=== PATIENT | male | born 1980 | race Caucasian/White ===

== ENCOUNTER 2017-04-17 10:17 | Emergency (ER) | payer MEDICARE, MEDICAID | END 2017-04-17 11:36 | disposition home or self-care (01) | LOC: D.ER 10:17 | DX: J01.90 Acute sinusitis, unspecified (principal); J31.0 Chronic rhinitis; B20 Human immunodeficiency virus [HIV] disease; F17.200 Nicotine dependence, unspecified, uncomplicated ==

== ENCOUNTER 2017-06-23 18:29 | Emergency (ER) | payer MEDICARE, MEDICAID | END 2017-06-23 20:24 | disposition home or self-care (01) | LOC: D.ER 18:29 | DX: K08.89 Other specified disorders of teeth and supporting structures (principal); B20 Human immunodeficiency virus [HIV] disease ==

== ENCOUNTER 2018-02-11 09:48 | Emergency (ER) | payer MEDICARE, MEDICAID ==
[~2018-02-11] VITALS: Ht 172.7 cm; Wt 95.9 kg
[2018-02-11 10:11] VITALS: Ht 172.7 cm; Wt 95.9 kg
[2018-02-11] MEDS ORDERED: ISENTRESS400 MG PO (10:16)
[2018-02-11] MEDS ORDERED: VALIUM10 MG PO (10:16)
[2018-02-11] MEDS ORDERED: DESCOVY PO (10:17)
[2018-02-11 10:39] LABS: APPEARANCE CLEAR (CLEAR); BILIRUBIN NEGATIVE (NEGATIVE); COLOR STRAW (YELLOW); GLUCOSE NEGATIVE (NEGATIVE); KETONE SMALL mg/dL (NEGATIVE); NITRITE NEGATIVE (NEGATIVE); PROTEIN NEGATIVE (NEGATIVE); UROBILINOGEN NORMAL (NORMAL)
[2018-02-11 10:45] LABS: BASOPHILS 0.3 % (0-2); EOSINOPHILS 2.2 % (0-7); HEMOGLOBIN 18.4 g/dL (13.5-17.5); IMMATURE GRANULOCYTES 0.4 % (0-5); LYMPHOCYTES 28.3 % (15-50); MCH 35.2 pg (26.0-34.0); MCHC 35.4 g/dL (31.0-37.0); MCV 99.6 fL (80.0-100.0); MEAN PLATELET VOLUME 10.5 fL (7.4-10.4); MONOCYTES 9.2 % (2-11); NEUTROPHILS 59.6 % (40-80); PLATELET COUNT 202 10x3/uL (130-400); RBC 5.22 10x6/uL (4.20-6.10); RDW 12.4 % (11.5-14.5); WBC 9.6 10x3/uL (4.8-10.8)
[2018-02-11 10:51] LABS: ALBUMIN 4.4 g/dL (3.4-5.0); ALKALINE PHOSPHATASE 101 U/L (46-116); ALT (SGPT) 197 U/L (10-68); BILIRUBIN - TOTAL 0.68 mg/dL (0.2-1.3); CALC OSMOLALITY 280 mosm/kg (275-300); CALCIUM 9.7 mg/dL (8.5-10.1); CARBON DIOXIDE 27.9 mmol/L (21.0-32.0); CHLORIDE - SERUM 101 mmol/L (98-107); GLUCOSE 114 mg/dL (74-106); POTASSIUM - SERUM 4.2 mmol/L (3.5-5.1); PROTEIN - SERUM 8.3 g/dL (6.4-8.2); SODIUM 140 mmol/L (136-145); UREA NITROGEN 14 mg/dL (7-18); eGFR NON AFRICAN AMERICAN 89 mL/min (90-120)
[2018-02-11] MEDS ORDERED: CYCLOBENZAPRINE10 MG PO (11:14)
[2018-02-11] MEDS ORDERED: HYDROCODON-ACE1 EAC7 PO (11:14)
[2018-02-11 11:29] VITALS: BP 160/115
== END 2018-02-11 11:29 | disposition home or self-care (01) ==
LOC: D.ER 09:48
PROVIDERS: Family Medicine
DX: S39.012A Strain of muscle, fascia and tendon of lower back, initial encounter (principal); X58.XXXA Exposure to other specified factors, initial encounter; Y93.89 Activity, other specified; Y92.89 Other specified places as the place of occurrence of the external cause; M54.32 Sciatica, left side; B20 Human immunodeficiency virus [HIV] disease

== ENCOUNTER 2018-08-10 17:18 | Emergency (ER) | payer MEDICARE, MEDICAID ==
[~2018-08-10] VITALS: Ht 170.2 cm; Wt 111.4 kg
[~2018-08-10 17:18] MED LIST: CYCLOBENZAPRINE10 MG PO; DESCOVY PO; HYDROCODON-ACE1 EAC7 PO; ISENTRESS400 MG PO; VALIUM10 MG PO
[2018-08-10 17:23] VITALS: Ht 170.2 cm; Wt 111.4 kg
[2018-08-10 18:07] LABS: BASOPHILS 0.2 % (0-2); EOSINOPHILS 1.1 % (0-7); HEMATOCRIT 47.2 % (42.0-54.0); HEMOGLOBIN 16.7 g/dL (13.5-17.5); IMMATURE GRANULOCYTES 0.5 % (0-5); LYMPHOCYTES 24.8 % (15-50); MCH 34.4 pg (26.0-34.0); MCHC 35.4 g/dL (31.0-37.0); MCV 97.3 fL (80.0-100.0); MEAN PLATELET VOLUME 10.7 fL (7.4-10.4); MONOCYTES 9.7 % (2-11); NEUTROPHILS 63.7 % (40-80); PLATELET COUNT 178 10x3/uL (130-400); RBC 4.85 10x6/uL (4.20-6.10); RDW 12.2 % (11.5-14.5); WBC 8.4 10x3/uL (4.8-10.8)
[2018-08-10 18:16] LABS: APTT 28.9 SECONDS (22.8-39.4); INR 0.98 (0.85-1.17); PROTIME 12.5 SECONDS (11.6-15.0)
[2018-08-10 18:21] LABS: ALBUMIN 3.5 g/dL (3.4-5.0); ALKALINE PHOSPHATASE 128 U/L (46-116); ALT (SGPT) 329 U/L (10-68); BILIRUBIN - TOTAL 0.45 mg/dL (0.2-1.3); CALC OSMOLALITY 282 mosm/kg (275-300); CARBON DIOXIDE 26.7 mmol/L (21.0-32.0); CHLORIDE - SERUM 103 mmol/L (98-107); CREATININE - SERUM 0.9 mg/dL (0.6-1.3); POTASSIUM - SERUM 4.3 mmol/L (3.5-5.1); PROTEIN - SERUM 7.5 g/dL (6.4-8.2); SODIUM 139 mmol/L (136-145); UREA NITROGEN 12 mg/dL (7-18); eGFR NON AFRICAN AMERICAN > 90 mL/min (90-120)
[2018-08-10 18:23] LABS: GLUCOSE 185 mg/dL (74-106)
[2018-08-10 18:32] LABS: CKMB 1.3 U/L (0.0-3.6); CREATINE KINASE 111 UL (21-232)
[2018-08-10 18:42] LABS: TROPONIN-I < 0.017 ng/mL (0.000-0.060)
[2018-08-10 19:09] LABS: APPEARANCE CLEAR (CLEAR); BILIRUBIN NEGATIVE (NEGATIVE); COLOR YELLOW (YELLOW); GLUCOSE 50 mg/dL (NEGATIVE); KETONE NEGATIVE (NEGATIVE); NITRITE NEGATIVE (NEGATIVE); PROTEIN NEGATIVE (NEGATIVE); SPECIFIC GRAVITY 1.015 (1.005-1.020); UROBILINOGEN NORMAL (NORMAL)
[2018-08-10 19:18] LABS: UDS - AMPHET NEGATIVE QUAL (NEGATIVE); UDS - BARB NEGATIVE QUAL (NEGATIVE); UDS - BENZO POSITIVE QUAL (NEGATIVE); UDS - COCAINE NEGATIVE QUAL (NEGATIVE); UDS - OPIATE NEGATIVE QUAL (NEGATIVE); UDS - PCP NEGATIVE QUAL (NEGATIVE); UDS - THC NEGATIVE QUAL (NEGATIVE)
[2018-08-10 21:04] VITALS: BP 142/110
== END 2018-08-10 21:05 | disposition home or self-care (01) ==
LOC: D.ER 17:18
PROVIDERS: Family Medicine
DX: I10 Essential (primary) hypertension (principal); E86.0 Dehydration; R53.1 Weakness

== ENCOUNTER 2018-10-13 19:55 | Emergency (ER) | payer MEDICARE, MEDICAID ==
[~2018-10-13] VITALS: Ht 170.2 cm; Wt 108.6 kg
[2018-10-13 19:57] VITALS: Ht 170.2 cm; Wt 108.6 kg
[2018-10-13 20:16] LABS: BASOPHILS 0.2 % (0-2); EOSINOPHILS 0.7 % (0-7); HEMATOCRIT 46.7 % (42.0-54.0); HEMOGLOBIN 16.7 g/dL (13.5-17.5); IMMATURE GRANULOCYTES 0.2 % (0-5); LYMPHOCYTES 20.5 % (15-50); MCH 33.9 pg (26.0-34.0); MCHC 35.8 g/dL (31.0-37.0); MCV 94.9 fL (80.0-100.0); MEAN PLATELET VOLUME 10.8 fL (7.4-10.4); MONOCYTES 9.1 % (2-11); NEUTROPHILS 69.3 % (40-80); PLATELET COUNT 172 10x3/uL (130-400); RBC 4.92 10x6/uL (4.20-6.10); RDW 12.3 % (11.5-14.5); WBC 10.1 10x3/uL (4.8-10.8)
--- NOTE | 2018-10-13 20:34 | NUR ---
DR RAMACHANDRAN NOTIFIED AND REVIEWED PT;s BEHAVIOR AND ASSESSMENT RESULTS. PT IS A LOW RISK PER DR RAMACHANDRAN. DR RAMACHANDRAN STATED TO GIVE RESOURCES TO PT AT TIME OF DISCHARGE. NO FURTHER ORDERS AT THIS TIME. RESOURCES REVIEWED WITH PT AND HE VERBALIZED UNDERSTANDING.
[2018-10-13 20:48] LABS: ALKALINE PHOSPHATASE 109 U/L (46-116); ALT (SGPT) 180 U/L (10-68); BILIRUBIN - TOTAL 0.64 mg/dL (0.2-1.3); CALC OSMOLALITY 275 mosm/kg (275-300); CALCIUM 9.1 mg/dL (8.5-10.1); CHLORIDE - SERUM 103 mmol/L (98-107); CREATINE KINASE 173 UL (21-232); POTASSIUM - SERUM 3.6 mmol/L (3.5-5.1); PROTEIN - SERUM 7.9 g/dL (6.4-8.2); SODIUM 138 mmol/L (136-145); UREA NITROGEN 11 mg/dL (7-18); eGFR NON AFRICAN AMERICAN 89 mL/min (90-120)
[2018-10-13 20:57] LABS: GLUCOSE 117 mg/dL (74-106)
[2018-10-13 21:36] LABS: APPEARANCE CLEAR (CLEAR); BILIRUBIN NEGATIVE (NEGATIVE); COLOR STRAW (YELLOW); GLUCOSE NEGATIVE (NEGATIVE); KETONE SMALL mg/dL (NEGATIVE); NITRITE NEGATIVE (NEGATIVE); PROTEIN NEGATIVE (NEGATIVE); SPECIFIC GRAVITY 1.005 (1.005-1.020); UROBILINOGEN NORMAL (NORMAL)
[2018-10-13 21:46] VITALS: BP 122/74
== END 2018-10-13 21:47 | disposition home or self-care (01) ==
LOC: D.ER 19:55
PROVIDERS: Family Medicine
DX: R11.10 Vomiting, unspecified (principal); R94.5 Abnormal results of liver function studies; R51 Headache

== ENCOUNTER 2019-09-04 15:01 | Emergency (ER) | payer MEDICARE, MEDICAID ==
[~2019-09-04] VITALS: Ht 170.2 cm; Wt 109.1 kg
[~2019-09-04 15:01] MED LIST changes: +ADVIL200 MG PO; +CATAPRES0.1 MG PO; +MAXZIDE 75/501 TAB PO; +NORVASC5 MG PO
[2019-09-04 15:37] VITALS: Ht 170.2 cm; Wt 109.1 kg
[2019-09-04] MEDS ORDERED: CRESTOR20 MG PO (15:39)
[2019-09-04 16:27] LABS: BASOPHILS 0.3 % (0-2); EOSINOPHILS 0.7 % (0-7); HEMATOCRIT 48.1 % (42.0-54.0); HEMOGLOBIN 16.7 g/dL (13.5-17.5); IMMATURE GRANULOCYTES 0.6 % (0-5); LYMPHOCYTES 20.3 % (15-50); MCH 33.7 pg (26.0-34.0); MCHC 34.7 g/dL (31.0-37.0); MCV 97.2 fL (80.0-100.0); MEAN PLATELET VOLUME 10.2 fL (7.4-10.4); MONOCYTES 7.9 % (2-11); NEUTROPHILS 70.2 % (40-80); PLATELET COUNT 212 10x3/uL (130-400); RBC 4.95 10x6/uL (4.20-6.10); RDW 12.4 % (11.5-14.5); WBC 10.3 10x3/uL (4.8-10.8)
[2019-09-04 16:43] LABS: APTT 27.3 SECONDS (22.8-39.4); INR 1.04 (0.85-1.17); PROTIME 13.5 SECONDS (11.6-15.0)
[2019-09-04 16:46] LABS: CALC OSMOLALITY 273 mosm/kg (275-300); CARBON DIOXIDE 25.3 mmol/L (21.0-32.0); CHLORIDE - SERUM 94 mmol/L (98-107); CREATININE - SERUM 0.9 mg/dL (0.6-1.3); POTASSIUM - SERUM 3.7 mmol/L (3.5-5.1); SODIUM 130 mmol/L (136-145); UREA NITROGEN 12 mg/dL (7-18); eGFR NON AFRICAN AMERICAN > 90 mL/min (90-120)
[2019-09-04 16:57] LABS: GLUCOSE 327 mg/dL (74-106)
[2019-09-04 17:07] LABS: ALBUMIN 3.7 g/dL (3.4-5.0); ALKALINE PHOSPHATASE 143 U/L (30-120); ALT (SGPT) 372 U/L (10-68); BILIRUBIN - TOTAL 0.71 mg/dL (0.2-1.3); CKMB 0.7 U/L (0.0-3.6); CREATINE KINASE 78 UL (21-232); MAGNESIUM - SERUM 2.2 mg/dL (1.8-2.4); PROTEIN - SERUM 8.4 g/dL (6.4-8.2); TROPONIN-I < 0.017 ng/mL (0.000-0.060)
[2019-09-04] MEDS ORDERED: GLUCOPHAGE500 MG PO (18:29)
[2019-09-04 18:55] VITALS: BP 159/100
== END 2019-09-04 18:55 | disposition home or self-care (01) ==
LOC: D.ER 15:01
PROVIDERS: Family Medicine
DX: E11.65 Type 2 diabetes mellitus with hyperglycemia (principal); R53.1 Weakness; R07.9 Chest pain, unspecified; I10 Essential (primary) hypertension; R05 Cough; R68.89 Other general symptoms and signs

== ENCOUNTER 2019-12-13 13:50 | Emergency (ER) | payer MEDICARE, MEDICAID ==
[~2019-12-13] VITALS: Ht 170.2 cm; Wt 1055.0 kg
[~2019-12-13 13:50] MED LIST changes: +CRESTOR20 MG PO; +GLUCOPHAGE500 MG PO
[2019-12-13 13:52] VITALS: Ht 170.2 cm; Wt 1055.0 kg
[2019-12-13 14:51] LABS: BASOPHILS 0.2 % (0-2); HEMATOCRIT 46.4 % (42.0-54.0); IMMATURE GRANULOCYTES 0.2 % (0-5); LYMPHOCYTES 15.7 % (15-50); MCH 33.5 pg (26.0-34.0); MCHC 34.5 g/dL (31.0-37.0); MCV 97.1 fL (80.0-100.0); MEAN PLATELET VOLUME 10.1 fL (7.4-10.4); MONOCYTES 9.3 % (2-11); NEUTROPHILS 73.6 % (40-80); PLATELET COUNT 212 10x3/uL (130-400); RBC 4.78 10x6/uL (4.20-6.10); RDW 12.7 % (11.5-14.5); WBC 10.6 10x3/uL (4.8-10.8)
[2019-12-13 15:03] LABS: CALC OSMOLALITY 278 mosm/kg (275-300); CALCIUM 9.2 mg/dL (8.5-10.1); CARBON DIOXIDE 29.8 mmol/L (21.0-32.0); CHLORIDE - SERUM 101 mmol/L (98-107); CREATININE - SERUM 1.1 mg/dL (0.6-1.3); POTASSIUM - SERUM 3.5 mmol/L (3.5-5.1); SODIUM 137 mmol/L (136-145); UREA NITROGEN 21 mg/dL (7-18); eGFR NON AFRICAN AMERICAN 79 mL/min (90-120)
[2019-12-13 15:07] LABS: GLUCOSE 126 mg/dL (74-106)
[2019-12-13 15:14] LABS: INR 0.95 (0.85-1.17); PROTIME 12.6 SECONDS (11.6-15.0)
[2019-12-13 15:15] LABS: APTT 31.5 SECONDS (22.8-39.4)
[2019-12-13 15:16] LABS: ALBUMIN 4.1 g/dL (3.4-5.0); ALKALINE PHOSPHATASE 117 U/L (30-120); ALT (SGPT) 104 U/L (10-68); BILIRUBIN - TOTAL 0.49 mg/dL (0.2-1.3); CKMB 1.5 U/L (0.0-3.6); CREATINE KINASE 108 UL (21-232); MAGNESIUM - SERUM 2.3 mg/dL (1.8-2.4); PROTEIN - SERUM 8.2 g/dL (6.4-8.2)
[2019-12-13 15:20] LABS: TROPONIN-I < 0.017 ng/mL (0.000-0.060)
[2019-12-13 16:13] VITALS: BP 133/90
== END 2019-12-13 16:14 | disposition home or self-care (01) ==
LOC: D.ER 13:50
PROVIDERS: Family Medicine
DX: F41.9 Anxiety disorder, unspecified (principal); R07.9 Chest pain, unspecified; B20 Human immunodeficiency virus [HIV] disease; I10 Essential (primary) hypertension; R06.02 Shortness of breath